=== PATIENT | male | born 1990 | race Caucasian/White ===

== ENCOUNTER 2017-02-02 16:54 | Observation (INO) | payer BC ==
[~2017-02-02] VITALS: Ht 182.9 cm; Wt 75.7 kg
[2017-02-02] MEDS ORDERED: LACTATED RINGERS 1,000 ML IV ONE (17:08)
--- NOTE | 2017-02-02 17:15 | ED Abdominal Pain ---
General Chief Complaint: Abdominal/GI Problems Stated Complaint: SEVERE ABD PAIN Source of Information: Patient History of Present Illness Time Seen By Provider: 17:03 Initial Comments PT C/O RLQ PAIN THAT WOKE HIM UP AT 0400 THIS AM PAIN IS WORSE WITH MOVEMENTS, WALKING, STANDING UP STRAIGHT, ETC. NO NAUSEA/VOMITING/DIARRHEA/CONSTIPATION--HAD A NORMAL BM JUST PRIOR TO ARRIVAL NO CHANGE IN APPETITE--ATE AT NOON NO URINARY SYMPTOMS--VOIDED JUST PRIOR TO ARRIVAL NO FEVER NO HISTORY OF SIMILAR Allergies and Home Medications Allergies Coded Allergies: No Known Drug Allergies (Unverified , 02/02/17) Home Medications Adalimumab 40 Mg/0.8 Ml Pen.ij.kit, #2 (Reported) Methotrexate Sodium 2.5 Mg Tablet, #48 (Reported) Review of Systems Constitutional: no symptoms reported Respiratory: No Symptoms Reported Cardiovascular: No Symptoms Reported Gastrointestinal: See HPI, Abdominal Pain, Denies Constipated, Denies Diarrhea , Denies Nausea, Denies Poor Appetite, Denies Poor Fluid Intake, Denies Vomiting Genitourinary: No Symptoms Reported Musculoskeletal: no symptoms reported Skin: no symptoms reported Psychiatric/Neurological: No Symptoms Reported Endocrine: No Symptoms Reported Hematologic/Lymphatic: No Symptoms Reported Past Tcihmwv-Nbzeky-Bhrxhw Hx Patient Social History Alcohol Use: Occasionally Uses Recreational Drug Use: No Smoking Status: Never a Smoker Type Used: Smokeless Tobacco Recent Foreign Travel: No Contact w/Someone Who Travel: No Surgeries HX Surgeries: Yes (RIGHT HAND TENDON REPAIR) Surgeries: Orthopedic Respiratory Hx Respiratory Disorders: No Cardiovascular Hx Cardiac Disorders: No Neurological Hx Neurological Disorders: No Reproductive System Hx Reproductive Disorders: No Genitourinary Hx Genitourinary Disorders: No Gastrointestinal Hx Gastrointestinal Disorders: No Musculoskeletal Hx Musculoskeletal Disorders: Yes (PSORIATIC ARTHRITIS) Endocrine Hx Endocrine Disorders: No HEENT HX ENT Disorders: No Cancer Hx Cancer: No Psychosocial Hx Psychiatric Problems: No Integumentary HX Skin/Integumentary Disorder: Yes (PSORIATIC ARTHRITIS) Skin/Integumentary Disorders: Psoriasis Blood Transfusions Hx Blood Disorders: No Physical Exam Vital Signs VS - Last 72 Hours, by Label 02/02/17 17:09 Temp 98.3 Pulse 70 Resp 16 B/P (MAP) 133/92 Pulse Ox 98 O2 Delivery Room Air Capillary Refill : General Appearance: WD/WN, no apparent distress, other (WALKS SLOWLY, SLIGHTLY BENT AT WAIST), thin HEENT: PERRL/EOMI Neck: normal inspection Respiratory: normal breath sounds, no respiratory distress, no accessory muscle use Cardiovascular: normal peripheral pulses, regular rate, rhythm, no murmur Gastrointestinal: normal bowel sounds, soft, no organomegaly, no pulsatile mass , No distended, No guarding, rebound (MARKED ), tenderness (RLQ), No hernia, No mass Extremities: normal inspection Back: normal inspection, no CVA tenderness Neurologic/Psychiatric: education consultant II-XII nml as tested, no motor/sensory deficits, alert, normal mood/affect, oriented x 3 Skin: normal color, warm/dry Progress/Results/Core Measures Results/Orders Lab Results Laboratory Tests Test 02/02/17 17:25 02/02/17 17:40 Range/Units White Blood Count 10.4 4.3-11.0 10^3/uL Red Blood Count 4.91 4.35-5.85 10^6/uL Hemoglobin 15.4 13.3-17.7 G/DL Hematocrit 45 40-54 % Mean Corpuscular Volume 91 80-99 FL Mean Corpuscular Hemoglobin 31 25-34 PG Mean Corpuscular Hemoglobin Concent 35 32-36 G/DL Red Cell Distribution Width 13.6 10.0-14.5 % Platelet Count 230 130-400 10^3/uL Mean Platelet Volume 9.7 7.4-10.4 FL Neutrophils (%) (Auto) 61 42-75 % Lymphocytes (%) (Auto) 27 12-44 % Monocytes (%) (Auto) 6 0-12 % Eosinophils (%) (Auto) 6 0-10 % Basophils (%) (Auto) 0 0-10 % Neutrophils # (Auto) 6.3 1.8-7.8 X 10^3 Lymphocytes # (Auto) 2.8 1.0-4.0 X 10^3 Monocytes # (Auto) 0.7 0.0-1.0 X 10^3 Eosinophils # (Auto) 0.6 H 0.0-0.3 10^3/uL Basophils # (Auto) 0.0 0.0-0.1 10^3/uL Sodium Level 142 135-145 MMOL/L Potassium Level 4.2 3.6-5.0 MMOL/L Chloride Level 104 98-107 MMOL/L Carbon Dioxide Level 25 21-32 MMOL/L Anion Gap 13 5-14 MMOL/L Blood Urea Nitrogen 15 7-18 MG/DL Creatinine 0.94 0.60-1.30 MG/DL Estimat Glomerular Filtration Rate > 60 BUN/Creatinine Ratio 16 Glucose Level 84 70-105 MG/DL Calcium Level 9.7 8.5-10.1 MG/DL Total Bilirubin 0.3 0.1-1.0 MG/DL Aspartate Amino Transf (AST/SGOT) 30 5-34 U/L Alanine Aminotransferase (ALT/SGPT) 37 0-55 U/L Alkaline Phosphatase 58 40-136 U/L Total Protein 7.5 6.4-8.2 G/DL Albumin 4.7 H 3.2-4.5 G/DL Amylase Level 62 25-125 U/L Lipase 34 8-78 U/L Prothrombin Time 14.5 12.2-14.7 SEC INR Comment 1.2 0.8-1.4 Activated Partial Thromboplast Time 25 24-35 SEC My Orders Orders - MORALES FERRARO DO Saline Lock/Iv-Start (02/02/17 17:08) Ct Abd/Pelv W (Appendicitis) (02/02/17 17:08) Amylase (02/02/17 17:08) Cbc With Automated Diff (02/02/17 17:08) Comprehensive Metabolic Panel (02/02/17 17:08) Lipase (02/02/17 17:08) Protime With Inr (02/02/17 17:08) Partial Thromboplastin Time (02/02/17 17:08) Ua Culture If Indicated (02/02/17 17:08) Acute Abd Series (02/02/17 17:08) Lactated Ringers (Lr 1000 Ml Iv Solution (02/02/17 17:08) Iohexol Injection (Omnipaque 350 Mg/Ml 1 (02/02/17 17:30) Ns (Ivpb) (Sodium Chloride 0.9% Ivpb Bag (02/02/17 17:30) Medications Given in ED Vital Signs/I&O Vital Sign - Last 12Hours 02/02/17 17:09 Temp 98.3 Pulse 70 Resp 16 B/P (MAP) 133/92 Pulse Ox 98 O2 Delivery Room Air Progress Note : Progress Note UNEVENTFUL ER STAY Diagnostic Imaging Comments ACUTE ABDOMEN XRAYS--NO ACUTE PROCESS, PER RADIOLOGIST REPORT CT ABDOMEN/PELVIS--NO ACUTE PROCESS, PER RADIOLOGIST REPORT @ 1820 Reviewed: Reviewed by Me Departure Communication Progress Notes 1819--SPOKE WITH DR. MELGAR, ACCEPTS PT FOR ADMIT Impression Impression: Primary Impression: RLQ abdominal pain Disposition: ADMITTED INPATIENT Condition: Stable Decision to Admit Reason: Admit from ER (General) Decision to Admit/Date: February 02, 2017 Time/Decision to Admit Time: 18:20 Departure-Patient Inst. Referrals: NO,LOCAL PHYSICIAN (PCP) Primary Care Physician MORALES FERRARO DO February 02, 2017 17:15
[2017-02-02] MEDS ORDERED: METH2.5T PO (17:19)
[2017-02-02] MEDS ORDERED: ADAL40PE INJ (17:19)
[2017-02-02] MEDS ORDERED: NS 100 ML (IVPB) BAG IV ONE (17:30)
[2017-02-02] MEDS ORDERED: IOHEXOL 350 MG/ML 100 ML (OMNIPAQUE 350) VIAL IV ONE (17:30)
[2017-02-02 17:40] LABS: BASOPHILS % (AUTO) 0 % (0-10); EOSINOPHILS # (AUTO) 0.6 10^3/uL (0.0-0.3); EOSINOPHILS % (AUTO) 6 % (0-10); LYMPHOCYTES # (AUTO) 2.8 X 10^3 (1.0-4.0); LYMPHOCYTES % (AUTO) 27 % (12-44); MEAN CORPUSCULAR HEMOGLOBIN 31 PG (25-34); MEAN CORPUSCULAR HGB CONC 35 G/DL (32-36); MEAN CORPUSCULAR VOLUME 91 FL (80-99); MEAN PLATELET VOLUME 9.7 FL (7.4-10.4); MONOCYTES # (AUTO) 0.7 X 10^3 (0.0-1.0); MONOCYTES % (AUTO) 6 % (0-12); NEUTROPHILS # (AUTO) 6.3 X 10^3 (1.8-7.8); NEUTROPHILS % (AUTO) 61 % (42-75); PLATELET COUNT 230 10^3/uL (130-400); RED BLOOD COUNT 4.91 10^6/uL (4.35-5.85); RED CELL DISTRIBUTION WIDTH 13.6 % (10.0-14.5); WHITE BLOOD COUNT 10.4 10^3/uL (4.3-11.0)
[2017-02-02 17:56] LABS: INR 1.2 (0.8-1.4); PROTHROMBIN TIME PATIENT 14.5 SEC (12.2-14.7)
--- NOTE | 2017-02-02 18:00 | Diagnostic Imaging Report ---
INDICATION: Generalized abdominal pain. COMPARISON: None. FINDINGS: Acute abdominal series demonstrates normal chest. The bowel gas pattern is normal. There is no obstruction, ileus, or free air. No abnormal calcifications are seen. IMPRESSION: Negative acute abdominal series. Dictated by: Dictated on workstation # [id number]
[2017-02-02 18:01] LABS: ALANINE AMINOTRANSFERASE 37 U/L (0-55); ALBUMIN 4.7 G/DL (3.2-4.5); AMYLASE 62 U/L (25-125); ANION GAP 13 MMOL/L (5-14); ASPARTATE AMINO TRANSFERASE 30 U/L (5-34); BILIRUBIN,TOTAL 0.3 MG/DL (0.1-1.0); BLOOD UREA NITROGEN 15 MG/DL (7-18); BUN/CREATININE RATIO 16; CALCIUM 9.7 MG/DL (8.5-10.1); CARBON DIOXIDE 25 MMOL/L (21-32); CHLORIDE 104 MMOL/L (98-107); CREATININE SERUM 0.94 MG/DL (0.60-1.30); GFR ESTIMATED > 60; GLUCOSE 84 MG/DL (70-105); LIPASE 34 U/L (8-78); POTASSIUM 4.2 MMOL/L (3.6-5.0); SODIUM 142 MMOL/L (135-145); TOTAL PROTEIN 7.5 G/DL (6.4-8.2)
--- NOTE | 2017-02-02 18:11 | Diagnostic Imaging Report ---
PROCEDURE: CT abdomen and pelvis with contrast, rule out appendicitis. TECHNIQUE: Multiple contiguous axial images were obtained through the abdomen and pelvis after the administration of intravenous contrast. INDICATION: Lower abdominal pain starting at 4:00 am this morning. COMPARISON: None. DISCUSSION: The visualized lung bases are well aerated. Normal heart size. No pleural or pericardial fluid. The liver, gallbladder, pancreas, stomach, spleen, adrenal glands, kidneys, urinary bladder, and prostate gland are unremarkable. The appendix is normal and air filled. The large and small bowel loops appear within normal limits. No obstruction, pneumatosis, or pneumoperitoneum. The abdominal aorta is normal in caliber. No ascites or pathologically enlarged lymph nodes identified. No acute osseous abnormality identified. IMPRESSION: 1. No acute abnormality identified within either the abdomen or pelvis. The appendix is normal. Dictated by: Dictated on workstation # [id number]
[2017-02-02 18:38] LABS: BILIRUBIN,URINE NEGATIVE (NEGATIVE); KETONES,URINE NEGATIVE (NEGATIVE); LEUKOCYTE ESTERASE ,URINE NEGATIVE (NEGATIVE); NITRITE,URINE NEGATIVE (NEGATIVE); PH,URINE 6.5 (5-9); PROTEIN,URINE NEGATIVE (NEGATIVE); UROBILINOGEN,URINE NORMAL (NORMAL)
[2017-02-02 18:57] VITALS: BP 135/89
[2017-02-02 19:02] LABS: SQUAMOUS EPITHELIAL CELL,UR RARE /HPF
[2017-02-02] MEDS ORDERED: CATHETER FLUSH 10 ML SYR IV PRN (19:15)
[2017-02-02] MEDS ORDERED: fentaNYL INJECTION 100 MCG/2 ML AMP INJ PRN (19:15)
[2017-02-02] MEDS ORDERED: ONDANSETRON 4 MG/2 ML (SDV) Z0FRAN IV PRN (19:15)
[2017-02-02] MEDS: D5 1/2 NS 1000 ML IV SOLUTION 1,000 ML IV SCH (19:41)
[2017-02-02 22:06] VITALS: BP 138/87
[2017-02-03] VITALS: BP 104/56
[2017-02-03] MEDS: D5 1/2 NS 1000 ML IV SOLUTION 1,000 ML IV SCH (02:04)
[2017-02-03 04:00] VITALS: BP 103/56
[2017-02-03 06:13] LABS: BASOPHILS % (AUTO) 0 % (0-10); EOSINOPHILS # (AUTO) 0.5 10^3/uL (0.0-0.3); EOSINOPHILS % (AUTO) 7 % (0-10); LYMPHOCYTES # (AUTO) 2.7 X 10^3 (1.0-4.0); LYMPHOCYTES % (AUTO) 37 % (12-44); MEAN CORPUSCULAR HEMOGLOBIN 32 PG (25-34); MEAN CORPUSCULAR HGB CONC 35 G/DL (32-36); MEAN CORPUSCULAR VOLUME 91 FL (80-99); MEAN PLATELET VOLUME 9.4 FL (7.4-10.4); MONOCYTES # (AUTO) 0.6 X 10^3 (0.0-1.0); MONOCYTES % (AUTO) 8 % (0-12); NEUTROPHILS # (AUTO) 3.4 X 10^3 (1.8-7.8); NEUTROPHILS % (AUTO) 47 % (42-75); PLATELET COUNT 202 10^3/uL (130-400); RED BLOOD COUNT 4.56 10^6/uL (4.35-5.85); RED CELL DISTRIBUTION WIDTH 13.3 % (10.0-14.5); WHITE BLOOD COUNT 7.2 10^3/uL (4.3-11.0)
[2017-02-03 06:40] LABS: ALANINE AMINOTRANSFERASE 31 U/L (0-55); ALBUMIN 3.7 G/DL (3.2-4.5); ANION GAP 8 MMOL/L (5-14); ASPARTATE AMINO TRANSFERASE 19 U/L (5-34); BILIRUBIN,TOTAL 0.6 MG/DL (0.1-1.0); BLOOD UREA NITROGEN 9 MG/DL (7-18); BUN/CREATININE RATIO 11; CALCIUM 8.8 MG/DL (8.5-10.1); CARBON DIOXIDE 25 MMOL/L (21-32); CHLORIDE 108 MMOL/L (98-107); CREATININE SERUM 0.83 MG/DL (0.60-1.30); GFR ESTIMATED > 60; GLUCOSE 112 MG/DL (70-105); SODIUM 141 MMOL/L (135-145); TOTAL PROTEIN 6.1 G/DL (6.4-8.2)
[2017-02-03] MEDS ORDERED: HYDROcodone/APAP 5 MG/325 MG (LORTAB) TAB PO ONE (07:00)
[2017-02-03 08:00] VITALS: BP 126/80
--- NOTE | 2017-02-03 08:07 | History & Physicial ---
History of Present Illness History of Present Illness Reason for visit/HPI lower abdominal pain of one-day duration. No anorexia. No constipation Date of Admission February 02, 2017 at 6:20 pm I consulted on this patient on 02/03/17 08:04 Attending Physician Chari Melgar MD Admitting Physician Kalie,Local Physician Consult Allergies and Home Medications Allergies Coded Allergies: No Known Drug Allergies (Unverified , 02/02/17) Home Medications Adalimumab 40 Mg/0.8 Ml Pen.ij.kit, #2 (Reported) Methotrexate Sodium 2.5 Mg Tablet, #48 (Reported) Past Aqmfvmw-Gclicb-Jewalw Hx Patient Social History Marrital Status: single Employed/Student: employed Alcohol Use: Occasionally Uses Recreational Drug Use: No Smoking Status: Never a Smoker Type Used: Smokeless Tobacco Physical Abuse Screen: No Sexual Abuse: No Recent Foreign Travel: No Contact w/other who traveled: No Recent Hopitalizations: No Recent Infectious Disease Expo: No Seasonal Allergies Seasonal Allergies: No Surgeries HX Surgeries: Yes (RIGHT HAND TENDON REPAIR) Surgeries: Orthopedic Respiratory Hx Respiratory Disorders: No Cardiovascular Hx Cardiovascular Disorders: No Neurological Hx Neurological Disorders: No Reproductive System Hx Reproductive Disorders: No Sexually Transmitted Disease: No HIV/AIDS: No Genitourinary Hx Genitourinary Disorders: No Gastrointestinal Hx Gastrointestinal Disorders: No Musculoskeletal Hx Musculoskeletal Disorders: Yes (PSORIATIC ARTHRITIS) Musculoskeletal Disorders: Arthritis Endocrine Hx Endocrine Disorders: No HEENT HX ENT Disorders: No Cancer Hx Cancer: No Psychosocial Hx Psychiatric Problems: No Integumentary HX Skin/Integumentary Disorder: Yes (PSORIATIC ARTHRITIS) Skin/Integumentary Disorders: Psoriasis Blood Transfusions Hx Blood Disorders: No Family Medical History Significant Family History: Other Conditions/Hx Other Significan Family Hx: psoriatic arthritis Constitutional: no symptoms reported EENTM: no symptoms reported Respiratory: no symptoms reported Cardiovascular: no symptoms reported Gastrointestinal: RLQ, abdominal pain (RUQ) Genitourinary: no symptoms reported Musculoskeletal: no symptoms reported Skin: no symptoms reported Psychiatric/Neurological: No Symptoms Reported Physical Exam Vital Signs Vital Sign - Last 12Hours 02/02/17 17:09 Temp 98.3 Pulse 70 Resp 16 B/P (MAP) 133/92 Pulse Ox 98 O2 Delivery Room Air Capillary Refill : Less Than 3 Seconds General Appearance: No Apparent Distress HEENT: Normal ENT Inspection Neck: Normal Inspection Respiratory: Lungs Clear, Accessory Muscle Use Cardiovascular: Regular Rate, Rhythm Gastrointestinal: Non Tender, Soft Extremity: Normal Inspection Neurologic/Psychiatric: Alert, Oriented x3 Skin: Warm/Dry Assessment/Plan Assessment and Plan young man with lower abdominal pain of short duration. Currently resolved. CT scan negative for acute appendicitis. Them nation unremarkable and therefore patient could be discharged with instruction to report any change in his symptomatology. Problems: Admission Diagnosis nonspecific lower abdominal pain Clinical Quality Measures DVT/VTE Risk/Contraindication: Risk Factor Score Per Nursin RFS Level Per Nursing on Admit: 1=Low/No VTE PPX CHARI MELGAR MD February 03, 2017 8:06 am
[2017-02-03] MEDS ORDERED: MULT-35 PO (08:14)
[2017-02-03] MEDS ORDERED: L.AC1CAP6 PO (08:14)
[2017-02-04] MEDS ORDERED: HYDR-3812 PO (17:19)
== END 2017-02-03 08:36 | disposition home or self-care (01) ==
LOC: EDUNIT# 16:54 → ER 16:55 → UNDOADMOB 18:20 → 4TH 18:20 → UNDODISOB 02-03 09:00
PROVIDERS: ADMIT Surgery; ATTEND Surgery
DX: R10.31 Right lower quadrant pain (principal)
CPT/HCPCS: 36415; 74022; 74177; 80053; 81000; 82150; 83690; 85025; 85610; 85730; 96360; G0378

== ENCOUNTER 2017-02-04 10:44 | Day surgery (SDC) | payer BC ==
[~2017-02-04] VITALS: Ht 182.9 cm; Wt 75.7 kg
[~2017-02-04 10:44] MED LIST: ADAL40PE INJ; L.AC1CAP6 PO; METH2.5T PO; MULT-35 PO
--- NOTE | 2017-02-04 11:08 | Progress Note-Pre Operative ---
Pre-Operative Progress Note H&P Reviewed The H&P was reviewed, patient examined and no changes noted. Date H&P Reviewed: February 04, 2017 Time H&P Reviewed: 11:07 Pre-Operative Diagnosis: right lower quadrant pain CHARI MELGAR MD February 04, 2017 11:08
[2017-02-04] MEDS ORDERED: metroNIDAZOLE 500MG/100ML IVPB 100 ML IV ONE (11:15)
[2017-02-04] MEDS ORDERED: ceFAZolin INJECTION 1,000 MG in NS (IVPB) 50 ML IV ONE (11:15)
[2017-02-04 11:57] VITALS: BP 125/72
[2017-02-04] MEDS ORDERED: CATHETER FLUSH 10 ML SYR IV PRN (12:15)
[2017-02-04] MEDS ORDERED: fentaNYL INJECTION 100 MCG/2 ML AMP IV PRN (12:15)
[2017-02-04] MEDS ORDERED: LACTATED RINGERS 1,000 ML IV SCH (12:15)
[2017-02-04] MEDS ORDERED: morphine INJ 10 MG/ML 1ML (SYR OR VIAL) ONE (15:10)
[2017-02-04] MEDS ORDERED: MEPERIDINE (DEMEROL) INJ 50 MG/ML ONE (15:10)
[2017-02-04] MEDS ORDERED: ONDANSETRON 4 MG/2 ML (SDV) Z0FRAN ONE ×2 (15:10→15:48)
[2017-02-04] MEDS ORDERED: LIDOCAINE PF 2% 10 ML (XYLOCAINE) AMP ONE (15:48)
[2017-02-04] MEDS ORDERED: LACTATED RINGERS 1,000 ML IV ONE (15:48)
[2017-02-04] MEDS ORDERED: SEVOFLURANE (ULTANE) 15 ML INHAL SOLN ONE ×5 (15:48→16:54)
[2017-02-04] MEDS ORDERED: proPOfol 200 MG/20 ML (DIPRIVAN) VIAL IV ONE (15:48)
[2017-02-04] MEDS ORDERED: ROCURONIUM 50 MG/5 ML (ZEMURON) VIAL IV ONE (15:48)
[2017-02-04] MEDS ORDERED: fentaNYL INJECTION 250 MCG/5 ML AMP ONE (15:49)
[2017-02-04] MEDS ORDERED: MIDAZOLAM 2 MG/2 ML (VERSED) VIAL ONE (15:49)
[2017-02-04] MEDS ORDERED: BUP/EPI 0.25% 1:200,000 (MARCAINE) 30 ML VIAL ONE (15:51)
[2017-02-04 16:02] VITALS: BP 123/72
[2017-02-04] MEDS ORDERED: NEOSTIGMINE (BLOXIVERZ ) 1 MG/1ML 10 ML VIAL ONE (16:56)
[2017-02-04] MEDS ORDERED: GLYCOPYRROLATE 0.2 MG/ML (ROBINUL) 2 ML VIAL ONE (16:56)
[2017-02-04] MEDS ORDERED: ONDANSETRON 4 MG/2 ML (SDV) Z0FRAN IV PRN (17:15)
[2017-02-04] MEDS ORDERED: HYDROmorphone (DILAUDID) 2 MG/ML VIAL IVP PRN (17:15)
[2017-02-04] MEDS ORDERED: ONDANSETRON 4 MG/2 ML (SDV) Z0FRAN IVP PRN (17:15)
--- NOTE | 2017-02-04 17:15 | Progress Note-Post Operative ---
Post-Operative Progess Note Surgeon (s)/Patient Transportation Driver (s) Surgeon CHARI MELGAR MD Patient Transportation Driver: not applicable Pre-Operative Diagnosis right lower quadrant pain Post-Operative Diagnosis aacute appendicitis Procedure & Operative Findings Date of Procedure 02/04/17 Procedure Performed/Findings laparoscopic appendectomy Anesthesia Type Gen. Estimated Blood Loss Estimated blood loss (mL): minimal Specimens/Packing Specimens Removed appendix CHARI MELGAR MD February 04, 2017 5:15 pm
[2017-02-04] MEDS ORDERED: HYDR-3812 PO (17:19)
--- NOTE | 2017-02-04 17:20 | Discharge Inst-Simple/Standard ---
Discharge Inst-Standard Discharge Medications New, Converted or Re-Newed RX: RX on Chart Patient Instructions/Follow Up Plan of Care/Instructions/FU: dressings off in a.m. Incentive spirometry. Follow-up in one week Activity as Tolerated: Yes Discharge Diet: No Restrictions HCARI MELGAR MD February 04, 2017 5:20 pm
[2017-02-04] MEDS: MEPERIDINE (DEMEROL) INJ 50 MG/ML IVP PRN ×2 (17:25→17:35)
[2017-02-04] MEDS: morphine INJ 10 MG/ML 1ML (SYR OR VIAL) IVP PRN ×2 (17:29→17:36)
[2017-02-04 18:20] VITALS: BP 123/77
[2017-02-04] MEDS: fentaNYL INJECTION 100 MCG/2 ML AMP IV PRN ×3 (18:32→21:38)
[2017-02-04] MEDS: ONDANSETRON 4 MG/2 ML (SDV) Z0FRAN IV PRN (18:32)
[2017-02-04 19:00] VITALS: BP 123/77
[2017-02-04] MEDS ORDERED: ceFAZolin INJECTION 1,000 MG in NS (IVPB) 50 ML IV NR (22:30)
[2017-02-04] MEDS: HYDROcodone/APAP 5 MG/325 MG (LORTAB) TAB PO PRN (23:03)
[2017-02-04] MEDS ORDERED: metroNIDAZOLE 500MG/100ML IVPB 100 ML IV NR (23:15)
[2017-02-05] VITALS: BP 130/61
[2017-02-05] MEDS: fentaNYL INJECTION 100 MCG/2 ML AMP IV PRN (00:13)
[2017-02-05] MEDS: ONDANSETRON 4 MG/2 ML (SDV) Z0FRAN IV PRN ×2 (00:21→09:53)
[2017-02-05 03:15] VITALS: BP 108/62
[2017-02-05] MEDS: HYDROcodone/APAP 5 MG/325 MG (LORTAB) TAB PO PRN (03:57)
[2017-02-05] MEDS ORDERED: KETOROLAC 15 MG/ML VIAL IV SCH (06:00)
--- NOTE | 2017-02-05 08:05 | OPERATIVE REPORT ---
DATE OF SERVICE: 02/04/2017 PREOPERATIVE DIAGNOSIS: Right lower quadrant pain. PREOPERATIVE DIAGNOSIS: Acute appendicitis. OPERATION: Laparoscopic appendectomy. SURGEON: Chari Melgar M.D. ANESTHESIA: General anesthesia. BLOOD LOSS: Minimal. FLUIDS: 1 liter of crystalloid. TYPE OF WOUND: Type 3 (contaminated wound). INDICATION FOR PROCEDURE: This young man presented with 2 days history of right lower quadrant pain. CT scan and white cell count were normal. Initially, he was observed and sent home , with instructions to return if his pain persisted. In fact, he presented to my office with worsening pain and anorexia. Therefore, on clinical grounds, it was felt reasonable to proceed with laparoscopy appendectomy. Informed consent was obtained after reviewing the operative details and complications of wound infection and intra-abdominal abscess. DESCRIPTION OF PROCEDURE: He was placed supine on the operating room table and general anesthesia induced using an endotracheal tube. Ancef 1 g and 500 mg of Flagyl were administered intravenously as prophylaxis against wound infection. Sequential compression devices were placed around his legs, to minimize the risk of venous thrombus. Abdomen was prepared and draped in the usual sterile manner. A supraumbilical incision was made and the linea alba incised vertically. A Waters cannula was placed and carbon dioxide insufflated to an intraabdominal pressure of 15 mmHg. Anatomy was visualized using a 30-degree laparoscope. Appendix was rather long, engorged with a fecalith at the base with erythema of the tip. I placed another 5 mm trocar over the right upper quadrant, followed by a 12 mm trocar over the left lower quadrant. He was then turned into Trendellenberg position with the right side tilted up. The mesoappendix and the base of the appendix were transected using an Endo-PHILIP vascular stapler. Oozing from the staple line was controlled using Ligaclips. The area was then irrigated with saline and the appendix placed in an EndoCatch bag, to be removed via the supraumbilical trocar site. The fascia over this incision was closed with #1 Vicryl. The skin incisions were closed using 4-0 Vicryl, in a subcuticular fashion. Marcaine 0.25% with epinephrine was infiltrated along the incisions, both preemptively and at the conclusion of the operation. He tolerated the procedure well, was extubated in the operating room and taken to the recovery room in a stable condition. Montegut, sponges and instrument were correct at the end of the operation. Job ID: [id number] DocumentID: [id number] Dictated Date: 02/04/2017 17:14:00 [employer] Date: 02/05/2017 07:25:17 Dictated By: CHARI MELGAR MD MTDSharlene
[2017-02-05 08:39] VITALS: BP 110/59
[2017-02-05 12:43] VITALS: BP 108/66
--- NOTE | 2017-02-05 12:46 | Progress Note-Standard ---
Standard Progress Note Progress Notes/Assess & Plan Progress/Assessment & Plan 02/05/17:doing well. Right lower quadrant pain resolved. Incisions dry. Could be discharged home today Final Diagnosis acute appendicitis CHARI MELGAR MD February 05, 2017 12:46 pm
== END 2017-02-05 12:15 | disposition home or self-care (01) ==
LOC: UNDOADMOB 10:44 → SDC 10:44 → 4TH 10:44 → EDSTATUS 15:15 → ENPENDDIS 02-05 10:00 → SDC 02-05 12:15 → UNDODISOB 02-05 12:15
PROVIDERS: ATTEND Surgery
DX: K35.80 Unspecified acute appendicitis (principal)
CPT/HCPCS: 87081; 94664